=== PATIENT | male | born 1995 | race Caucasian/White ===

== ENCOUNTER 2016-03-18 02:32 | Emergency (ER) | payer OTHER ==
[2016-03-18] MEDS ORDERED: LIDOCAINE W/EPINEPHRINE 1% 20ML VIAL As Ordered ONE (02:45)
--- NOTE | 2016-03-18 03:38 | REP ---
Clinical: Pain and swelling at the fifth digit. Technique: AP, lateral, bilateral oblique views of the right hand. Findings: Soft tissue swelling overlying the fifth digit is appreciated. No acute fracture or dislocation identified. No subcutaneous emphysema or radiodense foreign body. Impression: Swelling. No acute fracture dislocation. Signed by Juan A Patrick MD 03/18/2016 03:29 A
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
== END 2016-03-18 06:14 | disposition home or self-care (01) ==
LOC: M ED 02:32
DX: S01.511A Laceration without foreign body of lip, initial encounter (principal); Y04.0XXA Assault by unarmed brawl or fight, initial encounter; Y92.89 Other specified places as the place of occurrence of the external cause; Y93.89 Activity, other specified; Y99.8 Other external cause status; Z88.1 Allergy status to other antibiotic agents